=== PATIENT | male | born 1985 | race Caucasian/White ===

== ENCOUNTER 2019-01-25 07:07 | Day surgery (SDC) | payer OTHER ==
[~2019-01-25 07:07] MED LIST: SUCCINYLCHOLINE CHLORIDE 100 MG/5 ML SYG IV
[2019-01-25] MEDS ORDERED: CEFAZOLIN 2 GM/50 ML (PMX) 50 ML IVPB (08:00)
[2019-01-25] MEDS ORDERED: SOD CHLORIDE 0.9% 1,000 ML IV (08:00)
[2019-01-25] MEDS ORDERED: DIPHENHYDRAMINE 50 MG INJ IV (10:30)
[2019-01-25] MEDS ORDERED: MEPERIDINE 25 MG INJ IV (10:30)
[2019-01-25] MEDS ORDERED: HYDROmorphONE 1 MG/5 ML IV SYRINGE IV ×3 (10:30)
[2019-01-25] MEDS ORDERED: PROCHLORPERAZINE 10 MG INJ IV (10:30)
[2019-01-25] MEDS ORDERED: ONDANSETRON 4 MG INJ IV (10:30)
[2019-01-25] MEDS ORDERED: OXYCODONE/ACETAMINOPHEN (5/325) TAB PO (10:30)
[2019-01-25] MEDS ORDERED: FENTAnyl 50 MCG/ML VIAL IV (10:30)
[2019-01-25] MEDS ORDERED: FENTAnyl 50 MCG/ML VIAL (10:36)
[2019-01-25] MEDS ORDERED: PROPOFOL 20 ML (10:36)
[2019-01-25] MEDS ORDERED: LIDOCAINE 2% (SDV) 5 ML INJ (10:36)
[2019-01-25] MEDS ORDERED: MIDAZOLAM 1 MG/ML 2 ML INJ (10:36)
[2019-01-25] MEDS ORDERED: ETOMIDATE 20 MG INJ (10:56)
[2019-01-25] MEDS ORDERED: PHENYLephrine (100 MCG/ML) 5ML SYG (10:56)
[2019-01-25] MEDS ORDERED: CEFAZOLIN 1 GM INJ (11:18)
[2019-01-25] MEDS ORDERED: DEXAMETHASONE 4 MG/ML 5 ML INJ (11:25)
[2019-01-25] MEDS ORDERED: ONDANSETRON 4 MG INJ (11:25)
[2019-01-25] MEDS: BUPIVACAINE 0.5%/EPI (SDV) 30 ML INJ (11:50)
== END 2019-01-25 14:10 | disposition home or self-care (01) ==
LOC: SDS 07:07
DX: M79.5 Residual foreign body in soft tissue (principal)
CPT/HCPCS: 23333; 88300; 88304